=== PATIENT | female | born 1965 | race Caucasian/White ===

== ENCOUNTER 2021-06-14 05:44 | Emergency (ER) | payer OTHER, BC ==
[2021-06-14] MEDS ORDERED: Sodium Chloride 0.9% 10 ML Syringe FLUSH PRN (05:56)
--- NOTE | 2021-06-14 06:04 | EDM.PDOC ---
ED HPI GENERAL MEDICAL PROBLEM - General Chief Complaint: Chest Pain Stated Complaint: HEART ATTACK? Time Seen by Provider: 06/14/21 05:56 Source of Information: Reports: Patient History Limitations: Reports: No Limitations - History of Present Illness INITIAL COMMENTS - FREE TEXT/NARRATIVE: Jessy is a 56-year-old female presenting to the ED for evaluation of left arm pain for the last 2 days accompanied by central chest pain that started this morning around 4 AM. Patient is very concerned because multiple female family members have had heart attacks. She has no significant past medical history for heart disease, hypertension, diabetes, hyperlipidemia, but is postmenopausal. Reports the left arm pain has been constant and fairly dull. The central chest pain that started several hours ago feels like a pressure in her chest. She denies any significant shortness of breath, cough, fever or chills, sore throat, difficulty swallowing but does state that it feels like she is having reflux and the pain does not improve or worsen with breathing. She has had some diaphoresis this morning. She has not had any nausea or vomiting. Is vaccinated and boosted for COVID-19 and receive the influenza vaccine. - Related Data Allergies Allergy/AdvReac Type Severity Reaction Status Date / Time Sulfa (Sulfonamide Allergy Hives Verified 06/14/21 06:07 Antibiotics) Home Meds: Home Meds LORazepam [Ativan] 0.5 mg PO TID PRN #10 tablet 06/14/21 [Rx] ED ROS GENERAL - Review of Systems Review Of Systems: See Below Constitutional: Reports: Diaphoresis HEENT: Reports: No Symptoms Respiratory: Reports: No Symptoms Cardiovascular: Reports: Chest Pain (Central chest pain since 4 AM and left arm pain for the last 2 days) Endocrine: Reports: No Symptoms GI/Abdominal: Reports: No Symptoms : Reports: No Symptoms Musculoskeletal: Reports: Arm Pain (Left arm pain) Skin: Reports: Diaphoresis Neurological: Reports: No Symptoms Psychiatric: Reports: Anxiety Hematologic/Lymphatic: Reports: No Symptoms Immunologic: Reports: No Symptoms ED EXAM, GENERAL - Physical Exam Exam: See Below Exam Limited By: No Limitations General Appearance: Alert, Anxious, Mild Distress, Obese Eye Exam: Bilateral Eye: EOMI, PERRL Throat/Mouth: Normal Oropharynx, Normal Voice, No Airway Compromise Head: Atraumatic, Normocephalic Neck: Normal Inspection, Supple Respiratory/Chest: No Respiratory Distress, Lungs Clear, Normal Breath Sounds. No: Crackles, Rales, Rhonchi, Wheezing Cardiovascular: Normal Peripheral Pulses, Regular Rate, Rhythm, No Murmur Peripheral Pulses: 2+: Radial (L), Radial (R), Posterior Tibial (L), Posterior Tibial (R) GI/Abdominal: Normal Bowel Sounds, Soft, Non-Tender, No Distention. No: Guarding, Rebound Extremities: Normal Inspection, No Pedal Edema Neurological: Alert, Oriented, Normal Cognition, No Motor/Sensory Deficits Psychiatric: Normal Affect, Anxious Skin Exam: Warm, Dry, Intact, Normal Color #1 Interpretation EKG Date: 06/14/21 Time: 05:48 Rhythm: NSR Rate (Beats/Min): 85 [place]: Normal P-Wave: Enlarged (Left atrial enlargement) QRS: Normal ST-T: Normal QT: Normal Comparison: NA - No Prior EKG Course - Vital Signs Last Recorded V/S: Last Vital Signs Temp 36.5 C 06/14/21 05:54 Pulse 85 06/14/21 05:54 Resp 12 06/14/21 05:54 BP 166/83 H 06/14/21 05:54 Pulse Ox 99 06/14/21 05:54 - Orders/Labs/Meds Orders: Active Orders 24 hr Category Date Time Status Chest 1V Frontal [CR] Stat Exams 06/14/21 05:56 Ordered C-REACTIVE PROTEIN [CHEM] Stat Lab 06/14/21 05:56 Ordered COMPREHENSIVE METABOLIC PN,CMP [CHEM] Stat Lab 06/14/21 05:56 Ordered COVID-19/FLU A+B/RSV [MOLEC] Stat Lab 06/14/21 05:56 Ordered D-DIMER QUANTITATIVE [COAG] Stat Lab 06/14/21 05:56 Ordered TROPONIN I HIGH SENSITIVITY [CHEM] Stat Lab 06/14/21 05:56 Ordered Sodium Chloride 0.9% [Saline Flush] Med 06/14/21 05:56 Ordered 10 ml FLUSH ASDIRECTED PRN Isolation [COMM] Stat Oth 06/14/21 05:57 Ordered Saline Lock Insert [OM.PC] Routine Oth 06/14/21 05:56 Ordered EKG 12 Lead [EK] Routine Ther 06/14/21 05:56 Ordered Medication Orders Sodium Chloride (Sodium Chloride 0.9% 10 Ml Syringe) 10 ml FLUSH ASDIRECTED PRN PRN Reason: Keep Vein Open Last Admin: 06/14/21 06:15 Dose: 10 ml Documented by: Labs: Laboratory Tests 06/14/21 Range/Units 06:00 WBC 7.8 (4.5-11.0) K/uL RBC 4.74 (3.30-5.50) M/uL Hgb 13.8 (12.0-15.0) g/dL Hct 42.4 (36.0-48.0) % MCV 90 (80-98) fL MCH 29 (27-31) pg MCHC 33 (32-36) % Plt Count 289 (150-400) K/uL Neut % (Auto) 48.7 (36-66) % Lymph % (Auto) 39.8 (24-44) % [place] % (Auto) 9.1 H (2-6) % Eos % (Auto) 2.0 (2-4) % Baso % (Auto) 0.4 (0-1) % Meds: Medications Generic Name Dose Route Start Last Admin Trade Name Markus PRN Reason Stop Dose Admin Sodium Chloride 10 ml 06/14/21 05:56 06/14/21 06:15 Sodium Chloride 0.9% 10 Ml Syringe FLUSH 10 ml ASDIRECTED PRN Administration Keep Vein Open - Radiology Interpretation Free Text/Narrative:: I reviewed the one-view portable chest x-ray on [place] and there is no abnormalities noted. Normal cardiopulmonary anatomy. No infiltrates or hilar adenopathy. No groundglass opacities. - Re-Assessments/Exams Free Text/Narrative Re-Assessment/Exam: 06/14/21 06:46 patient's labs showing a normal CBC with a leukocyte count of 7.8, hemoglobin of 13.8 and platelet count of 289,000. The comprehensive metabolic panel shows a sodium 141, potassium 3.3, chloride 104, carbon of 25, BUN of 16 with a creatinine of 1.0 and a glucose of 119. Calcium is 8.7, AST is 59, ALT is 78 and alkaline phosphatase is 119. Troponin I is normal at 4.5. D-dimer is normal at 325.6. C-reactive protein is normal at 0.21. 06/14/21 06:52 patient is negative for influenza, RSV, and Covid. At this time I believe she is suitable for discharge home in satisfactory condition. Indications to return to the ED were discussed. I like her to follow-up with Beltran Espino in the [facility] to establish care and for referral to psychology for CBT to deal with her anxiety. Indications return to ED were discussed and she was discharged in satisfactory condition. Departure - Departure Time of Disposition: 06:49 Disposition: Home, Self-Care 01 Clinical Impression: Anxiety in acute stress reaction Instructions: Managing Anxiety, Adult, Supporting Someone With Anxiety Referrals: PCP,None [Primary Care Provider] - Forms: ED Department Discharge Care Plan Goals: Your work-up today has cleared any possibility that this was due to heart, lungs, or circulation. You are also negative for Covid, influenza and RSV. This is most likely due to an anxiety reaction due to stress related to a number of triggers. I recommend following up with Dorothy Espino DO in the [facility] to address anxiety and to refer you to a psychologist for counseling. I am prescribing you a small amount of lorazepam 0.5 mg as needed up to 3 times a day for anxiety. This is a very small prescription containing only 10 pills so use it sparingly as it can be quite habit-forming. Have a safe new year. Sepsis Event Note (ED) - Evaluation Sepsis Screening Result: No Definite Risk - Focused Exam Vital Signs: Vital Signs Temp Pulse Resp BP Pulse Ox 06/14/21 05:54 36.5 C 85 12 166/83 H 99 - Problem List & Annotations (1) Anxiety in acute stress reaction SNOMED Code(s): 87758182 Code(s): F41.1 - GENERALIZED ANXIETY DISORDER; F43.0 - ACUTE STRESS REACTION Status: Acute Priority: High Current Visit: Yes - Problem List Review Problem List Initiated/Reviewed/Updated: Yes - My Orders Last 24 Hours: My Active Orders 06/14/21 05:56 Chest 1V Frontal [CR] Stat C-REACTIVE PROTEIN [CHEM] Stat COMPREHENSIVE METABOLIC PN,CMP [CHEM] Stat COVID-19/FLU A+B/RSV [MOLEC] Stat D-DIMER QUANTITATIVE [COAG] Stat TROPONIN I HIGH SENSITIVITY [CHEM] Stat Sodium Chloride 0.9% [Saline Flush] 10 ml FLUSH ASDIRECTED PRN Saline Lock Insert [OM.PC] Routine EKG 12 Lead [EK] Routine 06/14/21 05:57 Isolation [COMM] Stat - Assessment/Plan Last 24 Hours: My Active Orders 06/14/21 05:56 Chest 1V Frontal [CR] Stat C-REACTIVE PROTEIN [CHEM] Stat COMPREHENSIVE METABOLIC PN,CMP [CHEM] Stat COVID-19/FLU A+B/RSV [MOLEC] Stat D-DIMER QUANTITATIVE [COAG] Stat TROPONIN I HIGH SENSITIVITY [CHEM] Stat Sodium Chloride 0.9% [Saline Flush] 10 ml FLUSH ASDIRECTED PRN Saline Lock Insert [OM.PC] Routine EKG 12 Lead [EK] Routine 06/14/21 05:57 Isolation [COMM] Stat
[2021-06-14] MEDS ORDERED: LORazepam 0.5 MG Tab PO ONE (06:30)
[2021-06-14 06:45] LABS: CORONAVIRUS COVID-19 NAA NEGATIVE (NEGATIVE)
--- NOTE | 2021-06-14 09:17 | CR ---
CHEST: Portable 06/14/2021 at 6:17 AM CLINICAL HISTORY:Chest pain COMPARISON:None FINDINGS: The heart size, pulmonary vascularity and hilar structures are normal. No infiltrate effusion or pneumothorax is seen. IMPRESSION: No acute cardiopulmonary process.
== END 2021-06-14 07:09 | disposition home or self-care (01) ==
LOC: JP.ED 05:44
DX: F41.8 Other specified anxiety disorders (principal); F43.0 Acute stress reaction; Z88.2 Allergy status to sulfonamides; Z20.822 Contact with and (suspected) exposure to COVID-19
CPT/HCPCS: 0241U; 36415; 71045; 80053; 84484; 85025; 85379; 86140; 93005; 99285; A9270

== ENCOUNTER 2022-08-18 18:58 | Emergency (ER) | payer BC, OTHER ==
[2022-08-18] MEDS ORDERED: HYDROmorphone 1 MG/ML Syringe IM ONE (19:42)
== END 2022-08-18 20:49 | disposition home or self-care (01) ==
LOC: JP.ED 18:58
DX: S52.591A Other fractures of lower end of right radius, initial encounter for closed fracture (principal); Z88.2 Allergy status to sulfonamides; W00.0XXA Fall on same level due to ice and snow, initial encounter
CPT/HCPCS: 29125; 73110; 96372; 99283; J1170

== ENCOUNTER 2022-10-08 05:46 | Day surgery (SDC) | payer OTHER ==
[2022-10-08] MEDS ORDERED: Bupivacaine 0.5% 50 ML MDV ONE (06:46)
[2022-10-08] MEDS ORDERED: Lidocaine 1% with EPINEPHrine 1:100,000 50 ML MDV ONE (06:46)
[2022-10-08] MEDS ORDERED: Nozin Nasal Sanitizer NASBOTH ONE (07:00)
[2022-10-08] MEDS ORDERED: Lactated Ringers 1,000 ML IV SCH (07:15)
[2022-10-08] MEDS ORDERED: Propofol 200 MG/20 ML SDV ONE (07:16)
[2022-10-08] MEDS ORDERED: fentaNYL 100 MCG/2 ML SDV ONE (07:16)
[2022-10-08] MEDS ORDERED: Midazolam 1 MG/ML 2 ML SDV ONE (07:17)
[2022-10-08] MEDS ORDERED: ceFAZolin 1 GM in Premix Bag 1 BAG IV ONE (07:30)
[2022-10-08] MEDS ORDERED: Acetaminophen/HYDROcodone 325-5 MG Tab PO PRN (08:41)
== END 2022-10-08 09:58 | disposition home or self-care (01) ==
LOC: JP.SDS 05:46
PROVIDERS: ATTEND Specialist
DX: T84.122A Displacement of internal fixation device of bone of right forearm, initial encounter (principal); K21.9 Gastro-esophageal reflux disease without esophagitis; D64.9 Anemia, unspecified; Y83.1 Surgical operation with implant of artificial internal device as the cause of abnormal reaction of the patient, or of later complication, without mention of misadventure at the time of the procedure
CPT/HCPCS: 20670; A9270; J0690; J2250; J2704; J3010; J3490; J7120